=== PATIENT | male | born 1945 | race African-American/Black ===

== ENCOUNTER 2021-12-12 21:09 | Inpatient (IN) | payer MEDICARE, OTHER ==
[~2021-12-12] VITALS: Ht 177.8 cm; Wt 73.5 kg
[2021-12-12 22:07] LABS: BASOPHILS % 0.2 % (0.0-2.0); EOSINOPHILS % 0.1 % (0.0-5.0); HEMATOCRIT. 41.1 % (42.0-52.0); HEMOGLOBIN. 14.6 g/dL (14.0-18.0); LYMPHOCYTES % 7.3 % (20.0-50.0); MEAN CORPUSCULAR HEMOGLOBIN 32.6 pg (28.0-32.0); MEAN CORPUSCULAR VOLUME 91.5 fL (80.0-94.0); MEAN PLATELET VOLUME 7.2 fl (7.4-10.4); MONOCYTES % 2.6 % (2.0-8.0); NEUTROPHILS % 89.8 % (40.0-76.0); PLATELET 177 x1000/uL (130-400); RED CELL DISTRIBUTION WIDTH 13.3 % (11.6-14.6)
[2021-12-12 22:15] LABS: CHLORIDE 115 mEq/L (98-107)
[2021-12-12] MEDS ORDERED: METOCLOPRAMIDE HCL 10MG/2ML VIAL IV ONE (22:15)
[2021-12-12] MEDS ORDERED: SODIUM CHLORIDE 0.9% 1,000 ML IV ONE ×2 (22:15→23:30)
[2021-12-12] MEDS ORDERED: MORPHINE SULFATE 4 MG/ML CPJ (NOT FOR IM USE) IV STA (23:17)
[2021-12-12] MEDS ORDERED: ONDANSETRON HCL 4MG/2ML INJ IV STA (23:17)
[2021-12-13] MEDS ORDERED: SODIUM CHLORIDE 0.9% 250 ML IV ONE (07:45)
[2021-12-13 08:00] VITALS: BP 124/62
[2021-12-13 10:00] VITALS: BP 124/62
[2021-12-13] MEDS ORDERED: DEXTROSE 50% WATER 50ML SYRINGE IV PRN (10:15)
[2021-12-13] MEDS ORDERED: ONDANSETRON HCL 4MG/2ML INJ IV PRN (10:15)
[2021-12-13] MEDS ORDERED: ACETAMINOPHEN 325MG TABLET PO PRN (10:15)
[2021-12-13] MEDS ORDERED: DIPHENHYDRAMINE 50MG/ML VIAL IV PRN (10:15)
[2021-12-13] MEDS ORDERED: POTASSIUM CHLORIDE INJ 40 MEQ in DEXT 5% WATER 500 ML IV ONE (10:15)
[2021-12-13] MEDS ORDERED: CLONIDINE 0.1MG TABLET PO PRN (10:15)
[2021-12-13] MEDS: ACETAMINOPHEN 325MG TABLET PO PRN ×2 (10:54→20:22)
[2021-12-13] MEDS: PANTOPRAZOLE SODIUM 40 MG/VIAL IV SCH ×2 (10:54→20:21)
[2021-12-13] MEDS ORDERED: MAGNESIUM 1 G PREMIX 100 ML IV SCH (11:00)
[2021-12-13] MEDS ORDERED: CALC-1042 MT (11:18)
[2021-12-13] MEDS ORDERED: SERT100T MT (11:18)
[2021-12-13] MEDS ORDERED: HYDR12.54 MT (11:18)
[2021-12-13] MEDS ORDERED: VITA250012 MT (11:18)
[2021-12-13] MEDS ORDERED: LACT1CAP78 MT (11:18)
[2021-12-13] MEDS ORDERED: VITA80008 (11:18)
[2021-12-13] MEDS ORDERED: ASPI-1497 MT (11:18)
[2021-12-13] MEDS ORDERED: FAMO-135 MT (11:18)
[2021-12-13 12:00] VITALS: BP 99/45
[2021-12-13] MEDS: BLOOD SUGAR DIAGNOSTIC STRIP TEST SCH ×3 (12:09→21:00)
[2021-12-13] MEDS: INSULIN LISPRO 100 UNITS/ML SUBCUT SCH ×3 (12:10→21:00)
[2021-12-13] MEDS: KCL 20MEQ/100ML X 2 FOR TOTAL KCL 40MEQ/200ML IV SCH ×2 (12:14→14:06)
[2021-12-13] MEDS: SODIUM CHLORIDE 0.9% INJ 3ML FLUSH IVF SCH ×2 (14:06→21:05)
[2021-12-13] MEDS ORDERED: LORAZEPAM 2MG/ML CPJ IV PRN (15:00)
[2021-12-13] MEDS ORDERED: KETOROLAC 30MG/ML VIAL IV PRN (15:00)
[2021-12-13 16:00] VITALS: BP 114/66
[2021-12-13] MEDS ORDERED: THIAMINE HCL 100 MG in SODIUM CHLORIDE 0.9% 49 ML IV NR (16:00)
[2021-12-13 20:00] VITALS: BP 121/55
[2021-12-13] MEDS ORDERED: ZOLPIDEM TARTRATE 5MG TABLET PO PRN (21:00)
[2021-12-14] VITALS: BP 118/55
[2021-12-14 04:00] VITALS: BP 113/53
[2021-12-14] MEDS: SODIUM CHLORIDE 0.9% INJ 3ML FLUSH IVF SCH ×2 (06:00→13:58)
[2021-12-14] MEDS: BLOOD SUGAR DIAGNOSTIC STRIP TEST SCH ×2 (06:12→12:21)
[2021-12-14 06:31] LABS: BASOPHILS % 0.2 % (0.0-2.0); HEMATOCRIT. 36.7 % (42.0-52.0); HEMOGLOBIN. 12.8 g/dL (14.0-18.0); LYMPHOCYTES % 24.2 % (20.0-50.0); MEAN CORPUSCULAR HEMOGLOBIN 31.8 pg (28.0-32.0); MEAN CORPUSCULAR VOLUME 91.3 fL (80.0-94.0); MEAN PLATELET VOLUME 7.9 fl (7.4-10.4); MONOCYTES % 9.8 % (2.0-8.0); NEUTROPHILS % 64.8 % (40.0-76.0); PLATELET 163 x1000/uL (130-400); RED BLOOD CELL COUNT 4.02 mill/uL (4.7-6.1); RED CELL DISTRIBUTION WIDTH 13.5 % (11.6-14.6)
[2021-12-14 06:44] LABS: CHLORIDE 114 mEq/L (98-107)
[2021-12-14 06:52] LABS: PHOSPHORUS 2.4 mg/dL (2.5-4.9)
[2021-12-14] MEDS: INSULIN LISPRO 100 UNITS/ML SUBCUT SCH ×2 (07:40→12:21)
[2021-12-14 08:00] VITALS: BP 136/73
[2021-12-14] MEDS: PANTOPRAZOLE SODIUM 40 MG/VIAL IV SCH (08:59)
[2021-12-14 10:00] VITALS: BP 132/71
[2021-12-14 12:00] VITALS: BP 128/70
[2021-12-14] MEDS ORDERED: POTASSIUM PHOS,M-BASIC-D-BASIC 10 MMOL in DEXT 5% WATER 246.6667 ML IV NR (13:00)
[2021-12-14 14:00] VITALS: BP 132/74
== END 2021-12-14 15:50 | disposition home or self-care (01) | DRG 392 ==
LOC: ER 21:09 → MICUSO 12-13 05:52 → 8WST 12-13 07:24
PROVIDERS: ADMIT Internal Medicine; ATTEND Internal Medicine
DX: A08.4 Viral intestinal infection, unspecified (principal); E87.6 Hypokalemia; K21.9 Gastro-esophageal reflux disease without esophagitis; I10 Essential (primary) hypertension; F41.9 Anxiety disorder, unspecified; Z20.822 Contact with and (suspected) exposure to COVID-19; E86.0 Dehydration; G47.30 Sleep apnea, unspecified
CPT/HCPCS: 36415; 71045; 74176; 80048; 80053; 80076; 82962; 83036; 83735; 84100; 84484; 85025; 87426; 93005; 94660; 99285; C9113; G0378; J1200; J2270; J2405; J2765; J3411; J3475; J3480; J3490; J7030; J7040; J7050; J7060